=== PATIENT | male | born 1955 | race Caucasian/White ===

== ENCOUNTER → 2017-12-01 | Outpatient (CLI) | payer BC ==
--- NOTE | 2017-12-03 00:19 | CT ---
EXAMINATION TYPE: CT angio chest DATE OF EXAM: 12/01/2017 COMPARISON: NONE HISTORY: thoracic aortic aneurysm CT DLP: 1210.3 mGycm. Automated Exposure Control for Dose Reduction was Utilized. CONTRAST: CTA scan of the thorax is performed without and with IV Contrast, patient injected with 100 mL of Iso frank 370, pulmonary embolism protocol. 3-D reconstructed images are created on an independent workstat ion and reviewed. FINDINGS: LUNGS: Slightly elevated left hemidiaphragm is present. The lungs are grossly clear, there is no conc erning parenchymal mass or nodule identified. There is no pleural effusion or pneumothorax seen. T he tracheobronchial tree is patent. MEDIASTINUM: There is satisfactory enhancement of the pulmonary artery and its branches, there is no CT evidence for pulmonary embolism. There are nonspecific prominent mediastinal lymph nodes, for ref erence right pericarinal lymph node measures 1.4 x 1.2 cm axial image 19. No cardiomegaly or perica rdial effusion is seen. Ascending aorta measures up to 4.1 cm diameter axial image 27. No aneurysmal extension into arch or descending aorta is seen. Coronary artery calcification is present which is no josie marker for coronary artery disease. OTHER: Spine is straightened on the sagittal images. There is mild to moderate multilevel lateral spu rring in the thoracolumbar spine. There appear to be 4-5 nonobstructing calculi scattered throughout the left kidney measuring up to 4 mm in size lower pole level coronal series 9 image 53. There are 2- 3 tiny calculi scattered throughout the right kidney. IMPRESSION: There is 4.1 cm aneurysm of the ascending aorta.
== END | disposition home or self-care (01) ==
LOC: RADCTMAIN 16:12
PROVIDERS: ATTEND Internal Medicine Interventional Cardiology
DX: I71.2 Thoracic aortic aneurysm, without rupture (principal)
CPT/HCPCS: 71275; Q9967

== ENCOUNTER → 2018-02-28 | Outpatient (CLI) | payer BC ==
--- NOTE | 2018-02-28 16:08 | XR ---
EXAMINATION TYPE: XR chest 2V DATE OF EXAM: 02/28/2018 COMPARISON: CTA chest December 01 2818 HISTORY: Insufficient aortic valve per order. TECHNIQUE: Frontal and lateral views of the chest are obtained. FINDINGS: Slightly elevated left hemidiaphragm is redemonstrated. There is no focal air space opacity , pleural effusion, or pneumothorax seen. The cardiac silhouette size is within normal limits. The osseous structures are intact. IMPRESSION: No acute cardiopulmonary process.
[2018-02-28 16:48] LABS: ALT 37 U/L (21-72); AST 20 U/L (17-59); Albumin 3.9 g/dL (3.5-5.0); Alkaline Phosphatase 57 U/L (38-126); Anion Gap 7 mmol/L; Blood Urea Nitrogen 16 mg/dL (9-20); Calcium 9.1 mg/dL (8.4-10.2); Carbon Dioxide 27 mmol/L (22-30); Chloride 105 mmol/L (98-107); Glucose 91 mg/dL (74-99); Potassium 4.5 mmol/L (3.5-5.1); Sodium 139 mmol/L (137-145); Total Bilirubin 0.3 mg/dL (0.2-1.3); Total Protein 6.8 g/dL (6.3-8.2)
== END | disposition home or self-care (01) ==
LOC: RADXRMAIN 15:41
PROVIDERS: ATTEND Nurse Practitioner Adult Health
DX: R06.02 Shortness of breath (principal); Q23.1 Congenital insufficiency of aortic valve; Z91.018 Allergy to other foods
CPT/HCPCS: 36415; 71046; 80053; 83880

== ENCOUNTER 2018-04-02 08:16 | Emergency (ER) | payer BC ==
[2018-04-02] MEDS ORDERED: IPRATROPIUM 0.5 MG/2.5 ML NEBU INHALATION STA (08:35)
[2018-04-02] MEDS ORDERED: methylPREDNISolone SOD SUCCI 125 MG/2 ML VIAL IV STA (08:35)
[2018-04-02] MEDS ORDERED: ALBUTEROL NEBULIZED 2.5 MG/3 ML INHALATION STA (08:35)
[2018-04-02 08:48] VITALS: RESP 18
--- NOTE | 2018-04-02 08:51 | ED ---
General Adult HPI - General Chief complaint: Upper Respiratory Infection Stated complaint: SOB Time Seen by Provider: 04/02/18 08:27 Source: patient, RN notes reviewed, old records reviewed Mode of arrival: ambulatory Limitations: no limitations - History of Present Illness Initial comments: 63-year-old male history of asthma presenting for evaluation of cough and dyspnea. Patient's symptoms have been progressive over several weeks. He states he's had what he believes sinusitis, some upper respiratory symptoms over the past several weeks as well. 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 Patient states that he has history of aortic aneurysm which is being followed by cardiology and was recently evaluated by echo within the past 2 months. He also has history of valvular disease and this is also being followed by cardiology. No history of CAD. No history of DVT or PE. He has history of asthma which is ALLERGIC type and is also being followed on an outpatient basis. He is on Advair and this has not improved his symptoms. He also reports history of GERD and states that his reflux has been worse over the past several weeks as well, he believes this may be contributing to his cough. - Related Data Home Medications Medication Instructions Recorded Confirmed Fluticasone Propionate [Flonase 2 spray EA NOSTRIL QAM 04/02/18 04/02/18 Allergy Relief] Fluticasone/Salmeterol [Advair 1 inhalation PO RT-DAILY 04/02/18 04/02/18 500-50 Diskus] Montelukast Sodium [Singulair] 10 mg PO QAM 04/02/18 04/02/18 Omeprazole 20 mg PO QAM 04/02/18 04/02/18 Previous Rx's Medication Instructions Recorded Azithromycin [Zithromax Z-pack] 0 mg PO DIRECTED #6 tab 04/02/18 predniSONE 50 mg PO DAILY #5 tab 04/02/18 Allergies Allergy/AdvReac Type Severity Reaction Status Date / Time gluten Allergy Severe Anaphylaxis Verified 04/02/18 08:44 wheat Allergy Severe Anaphylaxis Verified 04/02/18 08:44 Review of Systems ROS Statement: Those systems with pertinent positive or pertinent negative responses have been documented in the HPI. ROS Other: All systems not noted in ROS Statement are negative. Past Medical History Past Medical History: Asthma, GERD/Reflux, Mitral Valve Prolapse (MVP) Additional Past Medical History / Comment(s): chronic sinutsitis, aortic aneurysm, umbilical cornea History of Any Multi-Drug Resistant Organisms: None Reported Past Surgical History: Orthopedic Surgery Additional Past Surgical History / Comment(s): L knee x3, sinuses Past Psychological History: No Psychological Hx Reported Smoking Status: Never smoker Past Alcohol Use History: Rare Past Drug Use History: None Reported General Exam Limitations: no limitations General appearance: alert, in no apparent distress Head exam: Present: atraumatic, normocephalic Eye exam: Present: normal appearance, PERRL, EOMI ENT exam: Present: normal exam Neck exam: Present: normal inspection. Absent: tenderness, meningismus Respiratory exam: Present: wheezes, decreased breath sounds. Absent: respiratory distress Cardiovascular Exam: Present: regular rate, normal rhythm, systolic murmur GI/Abdominal exam: Present: soft. Absent: distended, tenderness, guarding Extremities exam: Present: normal inspection, normal capillary refill. Absent: pedal edema, calf tenderness Neurological exam: Present: alert, oriented X3, CN II-XII intact. Absent: motor sensory deficit Psychiatric exam: Present: normal affect, normal mood Skin exam: Present: warm, dry, intact. Absent: cyanosis, diaphoretic Course Vital Signs 04/02/18 04/02/18 04/02/18 08:18 09:31 09:39 Temperature 98.3 F Pulse Rate 107 H 92 94 Respiratory 18 Rate Blood Pressure 136/91 O2 Sat by Pulse 95 Oximetry EKG Findings - EKG Comments: EKG Findings:: EKG: Normal sinus rhythm, incomplete right bundle-branch block, MS interval 140, QRS duration 92, QTC 441, no ST segment elevation or depression Medical Decision Making - Medical Decision Making 63-year-old male presenting with cough and dyspnea. Symptoms have been ongoing for actually over the past several months. Patient has decreased air entry, wheezing bilaterally. Workup in the emergency department reveals EKG with no definitive signs of ischemia. Chest x-ray negative for focal pneumonia or acute findings. Patient has elevated white blood cell count 15.7, hemoglobin 14.9, normal electrolytes, negative troponin, negative BNP. They're offered observation for continued treatment of COPD exacerbation, patient declines, prefers outpatient follow-up. Will be prescribed antibiotics steroids. Will follow-up with his primary care physician, and he is given pulmonology follow- up. - Lab Data Result diagrams: 04/02/18 08:49 04/02/18 08:49 Lab Results 04/02/18 04/02/18 04/02/18 Range/Units 08:49 08:49 08:49 WBC 15.7 H (3.8-10.6) k/uL RBC 5.21 (4.30-5.90) m/uL Hgb 14.9 (13.0-17.5) gm/dL Hct 44.7 (39.0-53.0) % MCV 85.8 (80.0-100.0) fL MCH 28.6 (25.0-35.0) pg MCHC 33.4 (31.0-37.0) g/dL RDW 13.5 (11.5-15.5) % Plt Count 290 (150-450) k/uL Neutrophils % 78 % Lymphocytes % 10 % Monocytes % 9 % Eosinophils % 1 % Basophils % 0 % Neutrophils # 12.2 H (1.3-7.7) k/uL Lymphocytes # 1.6 (1.0-4.8) k/uL Monocytes # 1.3 H (0-1.0) k/uL Eosinophils # 0.2 (0-0.7) k/uL Basophils # 0.0 (0-0.2) k/uL PT (9.0-12.0) sec INR (<1.2) APTT (22.0-30.0) sec Sodium 136 L (137-145) mmol/L Potassium 4.6 (3.5-5.1) mmol/L Chloride 104 (98-107) mmol/L Carbon Dioxide 25 (22-30) mmol/L Anion Gap 7 mmol/L BUN 12 (9-20) mg/dL Creatinine 0.78 (0.66-1.25) mg/dL Est GFR (CKD-EPI)AfAm >90 (>60 ml/min/1.73 sqM) Est GFR (CKD-EPI)NonAf >90 (>60 ml/min/1.73 sqM) Glucose 101 H (74-99) mg/dL Calcium 9.2 (8.4-10.2) mg/dL Magnesium 1.8 (1.6-2.3) mg/dL Total Bilirubin 1.3 (0.2-1.3) mg/dL AST 17 (17-59) U/L ALT 27 (21-72) U/L Alkaline Phosphatase 69 (38-126) U/L Total Creatine Kinase 53 L (55-170) U/L CK-MB (CK-2) <0.2 (0.0-2.4) ng/mL CK-MB (CK-2) Rel Index Troponin I <0.012 (0.000-0.034) ng/mL NT-Pro-B Natriuret Pep pg/mL Total Protein 6.9 (6.3-8.2) g/dL Albumin 3.8 (3.5-5.0) g/dL 04/02/18 04/02/18 Range/Units 08:49 08:49 WBC (3.8-10.6) k/uL RBC (4.30-5.90) m/uL Hgb (13.0-17.5) gm/dL Hct (39.0-53.0) % MCV (80.0-100.0) fL MCH (25.0-35.0) pg MCHC (31.0-37.0) g/dL RDW (11.5-15.5) % Plt Count (150-450) k/uL Neutrophils % % Lymphocytes % % Monocytes % % Eosinophils % % Basophils % % Neutrophils # (1.3-7.7) k/uL Lymphocytes # (1.0-4.8) k/uL Monocytes # (0-1.0) k/uL Eosinophils # (0-0.7) k/uL Basophils # (0-0.2) k/uL PT 10.3 (9.0-12.0) sec INR 1.0 (<1.2) APTT 25.6 (22.0-30.0) sec Sodium (137-145) mmol/L Potassium (3.5-5.1) mmol/L Chloride (98-107) mmol/L Carbon Dioxide (22-30) mmol/L Anion Gap mmol/L BUN (9-20) mg/dL Creatinine (0.66-1.25) mg/dL Est GFR (CKD-EPI)AfAm (>60 ml/min/1.73 sqM) Est GFR (CKD-EPI)NonAf (>60 ml/min/1.73 sqM) Glucose (74-99) mg/dL Calcium (8.4-10.2) mg/dL Magnesium (1.6-2.3) mg/dL Total Bilirubin (0.2-1.3) mg/dL AST (17-59) U/L ALT (21-72) U/L Alkaline Phosphatase (38-126) U/L Total Creatine Kinase (55-170) U/L CK-MB (CK-2) (0.0-2.4) ng/mL CK-MB (CK-2) Rel Index Troponin I (0.000-0.034) ng/mL NT-Pro-B Natriuret Pep 86 pg/mL Total Protein (6.3-8.2) g/dL Albumin (3.5-5.0) g/dL Disposition Clinical Impression: COPD exacerbation Disposition: HOME SELF-CARE Condition: Good Instructions (If sedation given, give patient instructions): COPD (Chronic Obstructive Pulmonary Disease) (ED) Prescriptions: Azithromycin [Zithromax Z-pack] 0 mg PO DIRECTED #6 tab predniSONE 50 mg PO DAILY #5 tab Is patient prescribed a controlled substance at d/c from ED?: No Referrals: None,Stated [REFERRING] - 1-2 days Janice Gutiérrez MD [STAFF PHYSICIAN] - 1-2 days Time of Disposition: 10:31
[2018-04-02 09:39] LABS: Basophils % (A) 0 %; Eosinophils # (A) 0.2 k/uL (0-0.7); Eosinophils % (A) 1 %; HCT 44.7 % (39.0-53.0); HGB 14.9 gm/dL (13.0-17.5); Lymphocytes # (A) 1.6 k/uL (1.0-4.8); Lymphocytes % (A) 10 %; MCH 28.6 pg (25.0-35.0); MCHC 33.4 g/dL (31.0-37.0); MCV 85.8 fL (80.0-100.0); Monocytes # (A) 1.3 k/uL (0-1.0); Monocytes % (A) 9 %; Neutrophils # (A) 12.2 k/uL (1.3-7.7); Neutrophils % (A) 78 %; Platelet Count 290 k/uL (150-450); RBC 5.21 m/uL (4.30-5.90); RDW 13.5 % (11.5-15.5); WBC 15.7 k/uL (3.8-10.6)
--- NOTE | 2018-04-02 09:39 | XR ---
EXAMINATION TYPE: XR chest 2V DATE OF EXAM: 04/02/2018 COMPARISON: 02/28/2018 HISTORY: Shortness of breath TECHNIQUE: Frontal and lateral views of the chest are obtained. FINDINGS: Scattered senescent parenchymal changes noted. Hyperinflation compatible with COPD. No evidence for infiltrate. No evidence for atelectasis. Heart size is stable. Mediastinal structures are stable and grossly unremarkable. No evidence for hilar prominence. Degenerative changes dorsal spine. IMPRESSION: 1. No evidence for acute pulmonary disease.
[2018-04-02 09:45] LABS: Partial Thromboplastin Time 25.6 sec (22.0-30.0); Prothrombin Time 10.3 sec (9.0-12.0)
[2018-04-02 09:48] LABS: ALT 27 U/L (21-72); AST 17 U/L (17-59); Albumin 3.8 g/dL (3.5-5.0); Alkaline Phosphatase 69 U/L (38-126); Anion Gap 7 mmol/L; Blood Urea Nitrogen 12 mg/dL (9-20); Calcium 9.2 mg/dL (8.4-10.2); Carbon Dioxide 25 mmol/L (22-30); Chloride 104 mmol/L (98-107); Glucose 101 mg/dL (74-99); Magnesium 1.8 mg/dL (1.6-2.3); Potassium 4.6 mmol/L (3.5-5.1); Sodium 136 mmol/L (137-145); Total Bilirubin 1.3 mg/dL (0.2-1.3); Total Protein 6.9 g/dL (6.3-8.2)
[2018-04-02 09:56] LABS: Creatine Kinase 53 U/L (55-170)
[2018-04-02 10:09] LABS: Creatine Kinase MB <0.2 ng/mL (0.0-2.4); Troponin I <0.012 ng/mL (0.000-0.034)
[2018-04-02 10:51] VITALS: BP 121/80; PULSE 100; TEMP 97.8
== END 2018-04-02 10:50 | disposition home or self-care (01) ==
LOC: EC 08:16
DX: J44.1 Chronic obstructive pulmonary disease with (acute) exacerbation (principal); D72.829 Elevated white blood cell count, unspecified; K21.9 Gastro-esophageal reflux disease without esophagitis; Z53.29 Procedure and treatment not carried out because of patient's decision for other reasons; Z79.51 Long term (current) use of inhaled steroids; Z79.899 Other long term (current) drug therapy; Z91.018 Allergy to other foods
CPT/HCPCS: 36415; 94640; 93005; 83880; 80053; 82550; 82553; 83735; 84484; 85025; 85610; 85730; 71046; 99285; 96374; J2930

== ENCOUNTER → 2018-05-02 | Outpatient (CLI) | payer BC ==
[2018-05-02 15:57] LABS: Basophils # (A) 0.1 k/uL (0-0.2); Basophils % (A) 1 %; Eosinophils # (A) 0.8 k/uL (0-0.7); Eosinophils % (A) 12 %; HCT 46.7 % (39.0-53.0); HGB 14.9 gm/dL (13.0-17.5); Lymphocytes # (A) 1.9 k/uL (1.0-4.8); Lymphocytes % (A) 28 %; MCH 28.1 pg (25.0-35.0); MCHC 31.9 g/dL (31.0-37.0); Mean Platelet Volume 7.5; Monocytes # (A) 0.5 k/uL (0-1.0); Monocytes % (A) 8 %; Neutrophils # (A) 3.5 k/uL (1.3-7.7); Neutrophils % (A) 50 %; Platelet Count 258 k/uL (150-450); RBC 5.31 m/uL (4.30-5.90); RDW 13.7 % (11.5-15.5)
[2018-05-02 16:42] LABS: Total Eosinophil Count 840 #EOS/uL (150-300)
[2018-05-02 20:10] LABS: Erythrocyte Sedimentation Rate 8 mm/hr (0-15)
[2018-05-03 00:50] LABS: Oak IgE <0.10 kU/L
[2018-05-03 00:52] LABS: Birch IgE 0.12 kU/L; Maple (Box Elder) IgE 0.36 kU/L
[2018-05-03 00:53] LABS: Cat Epith & Dander IgE <0.10 kU/L; Cockroach IgE 0.68 kU/L; Dog Dander IgE <0.10 kU/L; Elm IgE <0.10 kU/L
[2018-05-03 00:54] LABS: Ragweed,Common IgE 1.08 kU/L
[2018-05-03 00:55] LABS: Alternaria alternata IgE <0.10 kU/L; Dermato. farinae IgE 1.03 kU/L; Red Top (Bentgrass) IgE 1.79 kU/L
== END | disposition home or self-care (01) ==
LOC: LABWHC1 15:19
PROVIDERS: ATTEND Internal Medicine
DX: J45.50 Severe persistent asthma, uncomplicated (principal)
CPT/HCPCS: 36415; 82785; 85008; 85025; 85652; 86003

== ENCOUNTER 2018-06-08 09:26 | Day surgery (SDC) | payer BC ==
[2018-06-06 10:59] VITALS: BMI 32.5
[~2018-06-08 09:26] MED LIST: LACTATED RINGERS 1,000 ML IV SCH
[2018-06-08 10:18] LABS: Glucose,Whole Blood 83 mg/dL (75-99)
[2018-06-08 10:19] VITALS: TEMP 97.9
[2018-06-08] MEDS ORDERED: LIDOCAINE 1% 20 ML VIAL (10MG/ML) FOR IV START INTRADERMA ONE (10:22)
[2018-06-08] MEDS ORDERED: PROPOFOL 10 MG/ML 20 ML VIAL IV ONE (11:53)
--- NOTE | 2018-06-08 11:55 | P.GSHP ---
History of Present Illness H&P Date: 06/08/18 Chief Complaint: GERD, screening Patient here today for upper and lower endoscopy. Patient has chronic reflux. Mild cough. Her last colonoscopy 11 years ago. No bowel complaints. Past Medical History Past Medical History: Asthma, GERD/Reflux, Mitral Valve Prolapse (MVP) Additional Past Medical History / Comment(s): chronic sinutsitis, aortic aneurysm, umbilical HERNIA History of Any Multi-Drug Resistant Organisms: None Reported Past Surgical History: Orthopedic Surgery Additional Past Surgical History / Comment(s): L knee x3, sinus SX. COLONOSCOPY Past Anesthesia/Blood Transfusion Reactions: Motion Sickness Smoking Status: Former smoker - Past Family History Mother Family Medical History: Deep Vein Thrombosis (DVT) Father Family Medical History: Cancer Medications and Allergies Home Medications Medication Instructions Recorded Confirmed Type Fluticasone Propionate [Flonase 2 spray EA [facility]STRIL [facility] 04/02/18 06/08/18 History Allergy Relief] Fluticasone/Salmeterol [Advair 1 inhalation PO RT-DAILY 04/02/18 06/08/18 History 500-50 Diskus] Montelukast Sodium [Singulair] 10 mg PO QAM 04/02/18 06/08/18 History Omeprazole 20 mg PO BID 04/02/18 06/08/18 History Allergies Allergy/AdvReac Type Severity Reaction Status Date / Time gluten Allergy Severe Anaphylaxis Verified 06/06/18 10:46 wheat Allergy Severe Anaphylaxis Verified 06/06/18 10:46 Surgical - Exam Vital Signs Temp Pulse Resp BP Pulse Ox 97.9 F 65 16 133/70 97 06/08/18 10:05 06/08/18 10:05 06/08/18 10:05 06/08/18 10:05 06/08/18 10:05 Physical exam: General: Well-developed, well-nourished HEENT: Normocephalic, sclerae nonicteric Abdomen: Nontender, nondistended Extremities: No edema Neuro: Alert and oriented Assessment and Plan (1) Colon cancer screening Narrative/Plan: Will proceed with upper and lower endoscopy Current Visit: Yes Status: Acute Code(s): Z12.11 - ENCOUNTER FOR SCREENING FOR MALIGNANT NEOPLASM OF COLON SNOMED Code(s): 926246822
--- NOTE | 2018-06-08 12:16 | P.PCN ---
Date of Procedure: 06/08/18 Procedure(s) Performed: PREOPERATIVE DIAGNOSIS: GERD, screening POSTOPERATIVE DIAGNOSIS: Mild gastritis, mild diverticulosis PROCEDURE: 1. EGD with biopsy 2. Colonoscopy ANESTHESIA: MAC SURGEON: Garrett Alonzo M.D. SPECIMENS: Antrum ENDOSCOPIC PROCEDURE: The patient was on the endoscopy table in the left decubitus position. The Olympus gastroscope was inserted into the oropharynx and passed under direct visualization to the region of the third portion of the duodenum. From that point the scope was slowly withdrawn inspecting all surfaces carefully. There were no neoplastic inflammatory or polypoid lesions throughout the duodenum. The pylorus was widely patent. The stomach was carefully inspected. There was gastritis present. A biopsy of the antrum took place to rule out H. pylori. Retroflexion revealed a normal hiatus. The esophagus was then carefully examined. There were no neoplastic inflammatory or polypoid lesions throughout the visualized esophagus. The patient was kept on the endoscopy table in the left decubitus position. The Olympus colonoscope was inserted into the anus and passed under direct visualization to the base of the cecum. The appendiceal orifice was visualized. From that point the scope was slowly withdrawn inspecting all surfaces carefully. There were no neoplastic inflammatory or polypoid lesions throughout the cecum, ascending, transverse, descending, sigmoid and rectum. There was mild diverticulosis noted. Digital rectal examination was normal. The patient was taken to the recovery room in stable condition per anesthesia guidelines. RECOMMENDATIONS: Continue antiacids. Resume diet. Follow-up colonoscopy 10 years.
[2018-06-08 12:36] VITALS: BP 120/71; PULSE 82; RESP 16
== END 2018-06-08 12:39 | disposition home or self-care (01) ==
LOC: ORWHC2ENDO 09:26
PROVIDERS: ATTEND Surgery
DX: Z12.11 Encounter for screening for malignant neoplasm of colon (principal); K29.50 Unspecified chronic gastritis without bleeding; K21.9 Gastro-esophageal reflux disease without esophagitis; I34.1 Nonrheumatic mitral (valve) prolapse; J45.909 Unspecified asthma, uncomplicated; K57.30 Diverticulosis of large intestine without perforation or abscess without bleeding; I71.9 Aortic aneurysm of unspecified site, without rupture; K42.9 Umbilical hernia without obstruction or gangrene; J32.9 Chronic sinusitis, unspecified; Z79.51 Long term (current) use of inhaled steroids; Z79.899 Other long term (current) drug therapy; Z91.018 Allergy to other foods; Z91.048 Other nonmedicinal substance allergy status; Z87.891 Personal history of nicotine dependence
CPT/HCPCS: 88305; 43239; J2704; G0121; 45378

== ENCOUNTER → 2019-01-02 | Outpatient (CLI) | payer BC ==
[2019-01-02 18:33] LABS: African American GFR (CKD) >90 (>60 ml/min/1.73 sqM); Blood Urea Nitrogen 19 mg/dL (9-20)
--- NOTE | 2019-01-03 04:16 | CT ---
EXAMINATION TYPE: CT angio chest DATE OF EXAM: 01/02/2019 COMPARISON: 12/01/2017 HISTORY: 63-year-old male follow-up for thoracic aortic aneurysm. TECHNIQUE: Contiguous axial scanning of the chest performed without and with IV Contrast, patient inj ected with 100ml mL of Isovue 370. Coronal/sagittal MIP reconstructions performed. 3-D reconstruction s generated on a dedicated independent workstation. CT DLP: 1406.1 mGycm Automated exposure control for dose reduction was used. FINDINGS: The heart is normal size without pericardial effusion. Epicardial fat pad along the cardiac apex. Sca ttered mild coronary vessel calcifications are present. Noncontrast images show no evidence for acute intramural hematoma within the thoracic aorta. Aortic root is ectatic at 3.8 cm, unchanged. Ascending aorta is borderline aneurysmal at 4.0 cm versus 3.9 cm, previously (prior exam remeasured f or consistency). Proximal arch is ectatic at 3.7 cm. Conventional arch was a branching anatomy. Upper descending thoracic aorta normal caliber at 2.6 cm. Lower descending thoracic aorta mildly ectatic at 2.7 cm. No evidence for aortic dissection or significant atherosclerotic change along the gale[place] of the thorac ic aorta. A few prominent lymph nodes such as measuring 9 mm in the right hilum unchanged. 1.4 cm lower pretrac heal lymph node previously measured 1.3 cm. It appears slightly more full as compared to 12/01/2017. Stable 6 mm subpleural pulmonary nodule posterior right base, axial image 49. Stable 7 mm right lower lobe pulmonary nodule, axial image 41. Stable 4 mm posterior right lower lobe pulmonary nodule, axial image 41 as well. Mild diffuse bronchial wall thickening suggests bronchitis or asthma. Strandy atelectasis or scarring at the left base. No consolidation or pleural effusion. Stable tiny cyst measuring 9 mm at the mid hepatic dome and also anteriorly on falciform ligament. Vi sualized upper abdomen otherwise shows no gross abnormality. Bones: No osseous destructive process. IMPRESSION: 1. Stable ectatic aortic root at 3.8 cm. 2. Ascending aorta mildly aneurysmal at 4.0 cm versus 3.9 cm, previously. Not significantly changed. 3. An enlarged 1.4 cm pretracheal lymph node appears slightly more full compared to 12/01/2017 where it measured 1.3 cm. Given overall indolent behavior, consider 6 month follow-up to reassess. 4. A few right-sided pulmonary nodules measuring up to 7 mm are stable for just over a year ingesting a benign etiology.
== END | disposition home or self-care (01) ==
LOC: RADCTMAIN 17:06
PROVIDERS: ATTEND Internal Medicine Interventional Cardiology
DX: I71.2 Thoracic aortic aneurysm, without rupture (principal); I77.810 Thoracic aortic ectasia; R59.0 Localized enlarged lymph nodes; R91.8 Other nonspecific abnormal finding of lung field
CPT/HCPCS: 82565; 84520; 71275; 36415; Q9967

== ENCOUNTER → 2020-01-13 | Outpatient (CLI) | payer BC ==
[2020-01-13 11:32] LABS: African American GFR (CKD) >90 (>60 ml/min/1.73 sqM); Blood Urea Nitrogen 16 mg/dL (9-20); Non-African American GFR(CKD) >90 (>60 ml/min/1.73 sqM)
--- NOTE | 2020-01-13 12:52 | CT ---
EXAMINATION TYPE: CT angio chest DATE OF EXAM: 01/13/2020 COMPARISON: 01/02/2019 HISTORY: 64-year-old male Thoracic aortic aneurysm without rupture TECHNIQUE: Contiguous axial scanning of the chest performed without and with IV Contrast, patient inj ected with 100 ml mL of Isovue 300. Coronal/sagittal MIP reconstructions performed. 3-D reconstructio ns generated on a dedicated independent workstation. CT DLP: 1051 mGycm Automated exposure control for dose reduction was used. FINDINGS: Heart normal size without pericardial effusion. Mild aortic valvular calcifications. Mild LAD and RCA coronary artery calcifications. Ectatic aortic root at 3.9 cm, not significantly changed versus 3.8 cm, previously. Ascending aorta mildly aneurysmal at 4.1 cm versus 4.0 cm, previously. Conventional arch was a branching anatomy. Ectatic mid descending thoracic aorta at 2.7 cm, unchanged. Initial noncontrast sequence shows no evidence for acute intramural hematoma. Prominent 1.5 cm short axis right paratracheal lymph node remains unchanged suggesting a benign etiol ogy. A few right mid and lower lung pulmonary nodules measuring up to 7 mm, axial images 38, 39, and 47 re main unchanged suggesting a benign etiology. No consolidation or pleural effusion. 4 mm nonobstructive right renal calculus. Partially visualized 3.1 cm posterior left mid to lower leida e renal cyst. Bones: No osseous destructive process. IMPRESSION: 1. ECTATIC AORTIC ROOT (3.9 CM VERSUS 3.8 MM, PREVIOUSLY) AND MILDLY ANEURYSMAL ASCENDING AORTA (4.1 CM VERSUS 4.0 CM, PREVIOUSLY), ARE RELATIVELY STABLE. 2. PROMINENT RIGHT PARATRACHEAL LYMPH NODE AND A FEW RIGHT-SIDED PULMONARY NODULES REMAIN UNCHANGED S UGGESTING A BENIGN ETIOLOGY.
== END | disposition home or self-care (01) ==
LOC: RADCTMAIN 10:43
PROVIDERS: ATTEND Internal Medicine Interventional Cardiology
DX: R91.8 Other nonspecific abnormal finding of lung field (principal); I71.2 Thoracic aortic aneurysm, without rupture
CPT/HCPCS: 82565; 84520; 71275; 36415; Q9967

== ENCOUNTER → 2021-09-13 | Outpatient (CLI) | payer BC ==
--- NOTE | 2021-09-13 16:18 | CT ---
EXAMINATION TYPE: CT angio chest DATE OF EXAM: 09/13/2021 COMPARISON: 01/13/2020 HISTORY: 66-year-old male I71.2, Thoracic aortic aneurysm TECHNIQUE: Contiguous axial scanning of the chest performed without and with IV Contrast, patient inj ected with 100 ML mL of Isovue 370. Coronal/sagittal MIP reconstructions performed. 3-D reconstructio ns generated on a dedicated independent workstation. CT DLP: 1027.2 mGycm Automated exposure control for dose reduction was used. FINDINGS: Heart normal size with trace pericardial fluid. LAD coronary artery calcifications are present. Simil ar mild aortic valvular calcifications. Aortic root ectatic 3.9 cm, unchanged. Mild aneurysm ascending aorta at 4.1 cm, unchanged. Conventional arch vessel branching anatomy. No evidence for aortic dissection or acute intramural hem atoma. Descending thoracic aorta normal caliber measuring up to 2.8 cm. Stable lobulated density lower right paratracheal measuring 1.6 cm could represent a mildly enlarged lymph node or prominent fluid within a pericardial recess. Otherwise, no thoracic lymphadenopathy. Mild diffuse bronchial wall thickening. There is strandy atelectasis at the left base. No consolidati on or pleural effusion. Visualized upper abdomen shows mild diverticular change within the hepatic flexure of the colon. Bones: No osseous destructive process. IMPRESSION: 1. STABLE MILD ANEURYSM ASCENDING AORTA 4.1 CM. 2. LAD CORONARY ARTERY CALCIFICATIONS. 3. MILD BRONCHIAL WALL THICKENING COULD REPRESENT BRONCHITIS OR CHRONIC ASTHMA.
== END | disposition home or self-care (01) ==
LOC: RADCTMAIN 12:47
PROVIDERS: ATTEND Internal Medicine Interventional Cardiology
DX: I71.2 Thoracic aortic aneurysm, without rupture (principal); I25.10 Atherosclerotic heart disease of native coronary artery without angina pectoris
CPT/HCPCS: 71275; Q9967

== ENCOUNTER → 2021-12-29 | Outpatient (CLI) | payer MEDICARE ==
--- NOTE | 2021-12-29 12:14 | CT ---
EXAMINATION TYPE: CT angio chest DATE OF EXAM: 12/29/2021 COMPARISON: 09/13/2021 HISTORY: Thoracic aortic aneurysm. CT DLP: 1214.5 mGycm CONTRAST: CTA thoracic aorta with 3-D reconstruction is performed and without and with IV Contrast, patient inj ected with 100ml mL of Isovue 370. Contrast CTA of the thoracic aorta was performed from the lung apex through the upper abdomen. 3D re construction imaging obtained at a separate workstation. CT Chest: THORACIC AORTA: Ascending thoracic aortic aneurysm measuring 4.1 cm in AP dimension unchanged from pr ior study. Mild atheromatous changes seen. There is no evidence for dissection or periaortic collect ion. LUNGS: The lungs are clear and free of infiltrate or atelectasis. No pulmonary nodule or mass is det ected. No pleural effusion or CT evidence of interstitial lung disease. MEDIASTINUM: No evidence for mediastinal hematoma. The heart is not enlarged. No evidence for med iastinal mass or adenopathy. LAD coronary calcifications noted. HILAR STRUCTURES: No evidence for mass. No hilar adenopathy is appreciated. OTHER: No significant abnormality. IMPRESSION- 1. Stable ascending thoracic aortic aneurysm.
== END | disposition home or self-care (01) ==
LOC: RADCTMAIN 10:21
PROVIDERS: ATTEND Internal Medicine Interventional Cardiology
DX: I71.20 Thoracic aortic aneurysm, without rupture, unspecified (principal)
CPT/HCPCS: 71275; Q9967